=== PATIENT | female | born 1990 | race Two or more races ===

== ENCOUNTER 2019-02-24 18:48 | Emergency (ER) | payer MEDICAID ==
[2019-02-24] MEDS ORDERED: Morphine 4 MG/ML Syringe IVPUSH ONE (19:10)
[2019-02-24] MEDS ORDERED: Ondansetron 4 MG/2 ML SDV IVPUSH ONE (19:10)
[2019-02-24] MEDS ORDERED: Sodium Chloride 0.9% 10 ML Syringe FLUSH PRN (19:10)
[2019-02-24 19:12] VITALS: BP 143/119; PULSE 100
--- NOTE | 2019-02-24 19:14 | EDM.PDOC ---
ED HPI GENERAL MEDICAL PROBLEM - General Chief Complaint: Respiratory Problem Stated Complaint: TROUBLE BREATHING Time Seen by Provider: 02/24/19 19:06 Source of Information: Reports: Patient History Limitations: Reports: No Limitations - History of Present Illness INITIAL COMMENTS - FREE TEXT/NARRATIVE: Patient's unfortunate 28-year-old morbidly obese female who presents emergency Department today with complaint of left-sided chest pain. Patient reports that symptoms started yesterday with a sharp stabbing type pain that has worsened today. Patient reports the pain became so severe that she needed to leave work for him and caused her to vomit. Pain is worse with deep inspiration or palpation improves with rest does not alleviate. No fever no chills no cough no congestion also for shortness of breath no recent travel Left Abdomen Pain Score (Numeric/FACES): 7 - Related Data Allergies Allergy/AdvReac Type Severity Reaction Status Date / Time codeine Allergy Rash Verified 02/24/19 19:12 Home Meds: Home Meds . [No Known Home Meds] 02/24/19 [History] Past Medical History Genitourinary History: Reports: Renal Calculus, Other (See Below) Other Genitourinary History: stents placed [employer] History: Reports: Endocrine/Metabolic History: Reports: Diabetes, Type II - Past Surgical History HEENT Surgical History: Reports: Tonsillectomy GI Surgical History: Reports: Appendectomy Social & Family History - Family History Family Medical History: Noncontributory - Caffeine Use Caffeine Use: Reports: None ED ROS GENERAL - Review of Systems Review Of Systems: See Below Constitutional: Denies: Fever, Chills Respiratory: Reports: Shortness of Breath. Denies: Cough, Sputum Cardiovascular: Reports: Chest Pain GI/Abdominal: Reports: Abdominal Pain, Nausea, Vomiting ED EXAM, GENERAL - Physical Exam Exam: See Below Exam Limited By: No Limitations General Appearance: Alert, WD/WN, Moderate Distress, Obese Nose: Normal Inspection, Normal Mucosa, No Blood Throat/Mouth: Normal Inspection, Normal Lips, Normal Teeth, Normal Gums, Normal Oropharynx, Normal Voice, No Airway Compromise Head: Atraumatic, Normocephalic Respiratory/Chest: No Respiratory Distress, Lungs Clear, Normal Breath Sounds, No Accessory Muscle Use, Other (Tenderness to left sternal border intercostal space 4-5 which completely reproduces symptoms). No: Chest Non-Tender Cardiovascular: Normal Peripheral Pulses, Regular Rate, Rhythm, No Edema, No Gallop, No JVD, No Murmur, No Rub GI/Abdominal: Normal Bowel Sounds, Soft, Tender (Severe tenderness right upper quadrant and epigastric positive Araujo sign) Back Exam: Normal Inspection, Full Range of Motion, NT Extremities: Normal Inspection, Normal Range of Motion, Non-Tender, Normal Capillary Refill, No Pedal Edema Neurological: Alert Skin Exam: Warm, Dry EKG INTERPRETATION EKG Date: 02/24/19 Time: 19:40 Rhythm: NSR [place]: Normal P-Wave: Present QRS: Normal ST-T: Normal QT: Normal Course - Vital Signs Last Recorded V/S: Last Vital Signs Temp 97.0 F 02/24/19 19:08 Pulse 100 02/24/19 19:08 Resp 22 H 02/24/19 19:08 BP 143/119 H 02/24/19 19:08 Pulse Ox 100 02/24/19 19:08 - Orders/Labs/Meds Orders: Active Orders 24 hr Category Date Time Status EKG Documentation Completion [RC] ASDIRECTED Care 02/24/19 19:11 Active Chest 2V [CR] Stat Exams 02/24/19 19:10 Taken Sodium Chloride 0.9% [Saline Flush] Med 02/24/19 19:10 Active 10 ml FLUSH ASDIRECTED PRN Saline Lock Insert [OM.PC] Stat Oth 02/24/19 19:10 Ordered EKG 12 Lead [EK] Stat Ther 02/24/19 19:10 Ordered Medication Orders Sodium Chloride (Saline Flush) 10 ml FLUSH ASDIRECTED PRN PRN Reason: Keep Vein Open Last Admin: 02/24/19 19:25 Dose: 10 ml Labs: Laboratory Tests 02/24/19 02/24/19 02/24/19 Range/Units 19:20 19:20 19:20 WBC 14.13 H (3.98-10.04) K/mm3 RBC 4.94 (3.98-5.22) M/mm3 Hgb 11.2 D (11.2-15.7) gm/dl Hct 35.9 (34.1-44.9) % MCV 72.7 L (79.4-94.8) fl MCH 22.7 L (25.6-32.2) pg MCHC 31.2 L (32.2-35.5) g/dl RDW Std Deviation 44.0 (36.4-46.3) fL Plt Count 420 H (182-369) K/mm3 MPV 10.4 (9.4-12.3) fl Neut % (Auto) 66.6 (34.0-71.1) % Lymph % (Auto) 25.0 (19.3-51.7) % [place] % (Auto) 6.7 (4.7-12.5) % Eos % (Auto) 1.3 (0.7-5.8) Baso % (Auto) 0.2 (0.1-1.2) % Neut # (Auto) 9.42 H (1.56-6.13) K/mm3 Lymph # (Auto) 3.53 (1.18-3.74) K/mm3 [place] # (Auto) 0.94 H (0.24-0.36) K/mm3 Eos # (Auto) 0.18 (0.04-0.36) K/mm3 Baso # (Auto) 0.03 (0.01-0.08) K/mm3 Manual Slide Review Abnormal smear Sodium 136 (136-145) mEq/L Potassium 4.0 (3.5-5.1) mEq/L Chloride 100 (98-107) mEq/L Carbon Dioxide 23 (21-32) mEq/L Anion Gap 17.0 H (5-15) BUN 11 (7-18) mg/dL Creatinine 0.7 (0.55-1.02) mg/dL Est Cr Clr Drug Dosing 94.63 mL/min Estimated GFR (MDRD) > 60 (>60) mL/min BUN/Creatinine Ratio 15.7 (14-18) Glucose 115 H (74-106) mg/dL Calcium 8.8 (8.5-10.1) mg/dL Total Bilirubin 0.2 (0.2-1.0) mg/dL AST 14 L (15-37) U/L ALT 30 (14-59) U/L Alkaline Phosphatase 105 (46-116) U/L Troponin I < 0.017 (0.00-0.056) ng/mL Total Protein 7.8 (6.4-8.2) g/dl Albumin 3.2 L (3.4-5.0) g/dl Globulin 4.6 gm/dL Albumin/Globulin Ratio 0.7 L (1-2) Lipase 181 (73-393) U/L HCG, Qual Negative (NEGATIVE) Urine Color (Yellow) Urine Appearance (Clear) Urine pH (5.0-8.0) Ur Specific [place] (1.005-1.030) Urine Protein (Negative) Urine Glucose (UA) (Negative) Urine Ketones (Negative) Urine Occult Blood (Negative) Urine Nitrite (Negative) Urine Bilirubin (Negative) Urine Urobilinogen (0.2-1.0) Ur Leukocyte Esterase (Negative) Urine RBC (0-5) /hpf Urine WBC (0-5) /hpf Ur Squamous Epith Cells (0-5) /hpf Urine Bacteria (FEW) /hpf Urine Mucus (FEW) /hpf 02/24/19 Range/Units 20:30 WBC (3.98-10.04) K/mm3 RBC (3.98-5.22) M/mm3 Hgb (11.2-15.7) gm/dl Hct (34.1-44.9) % MCV (79.4-94.8) fl MCH (25.6-32.2) pg MCHC (32.2-35.5) g/dl RDW Std Deviation (36.4-46.3) fL Plt Count (182-369) K/mm3 MPV (9.4-12.3) fl Neut % (Auto) (34.0-71.1) % Lymph % (Auto) (19.3-51.7) % [place] % (Auto) (4.7-12.5) % Eos % (Auto) (0.7-5.8) Baso % (Auto) (0.1-1.2) % Neut # (Auto) (1.56-6.13) K/mm3 Lymph # (Auto) (1.18-3.74) K/mm3 [place] # (Auto) (0.24-0.36) K/mm3 Eos # (Auto) (0.04-0.36) K/mm3 Baso # (Auto) (0.01-0.08) K/mm3 Manual Slide Review Sodium (136-145) mEq/L Potassium (3.5-5.1) mEq/L Chloride (98-107) mEq/L Carbon Dioxide (21-32) mEq/L Anion Gap (5-15) BUN (7-18) mg/dL Creatinine (0.55-1.02) mg/dL Est Cr Clr Drug Dosing mL/min Estimated GFR (MDRD) (>60) mL/min BUN/Creatinine Ratio (14-18) Glucose (74-106) mg/dL Calcium (8.5-10.1) mg/dL Total Bilirubin (0.2-1.0) mg/dL AST (15-37) U/L ALT (14-59) U/L Alkaline Phosphatase (46-116) U/L Troponin I (0.00-0.056) ng/mL Total Protein (6.4-8.2) g/dl Albumin (3.4-5.0) g/dl Globulin gm/dL Albumin/Globulin Ratio (1-2) Lipase (73-393) U/L HCG, Qual (NEGATIVE) Urine Color Yellow (Yellow) Urine Appearance Clear (Clear) Urine pH 7.0 (5.0-8.0) Ur Specific [place] > or = 1.030 (1.005-1.030) Urine Protein Negative (Negative) Urine Glucose (UA) Negative (Negative) Urine Ketones Negative (Negative) Urine Occult Blood 1+ H (Negative) Urine Nitrite Negative (Negative) Urine Bilirubin Negative (Negative) Urine Urobilinogen 0.2 (0.2-1.0) Ur Leukocyte Esterase Negative (Negative) Urine RBC 5-10 H (0-5) /hpf Urine WBC 5-10 H (0-5) /hpf Ur Squamous Epith Cells 5-10 H (0-5) /hpf Urine Bacteria Few (FEW) /hpf Urine Mucus Moderate H (FEW) /hpf Meds: Medications Generic Name Dose Route Start Last Admin Trade Name Freq PRN Reason Stop Dose Admin Sodium Chloride 10 ml 02/24/19 19:10 02/24/19 19:25 Saline Flush FLUSH 10 ml ASDIRECTED PRN Administration Keep Vein Open Discontinued Medications Generic Name Dose Route Start Last Admin Trade Name Freq PRN Reason Stop Dose Admin Al Hydroxide/Mg Hydroxide 30 0 ml 02/24/19 20:50 02/24/19 20:56 ml/ Lidocaine HCl 15 ml PO 02/24/19 20:51 45 ml ONETIME ONE Administration Morphine Sulfate 4 mg 01/20/20 19:10 02/24/19 19:25 Morphine IVPUSH 02/24/19 19:11 4 mg ONETIME ONE Administration Ondansetron HCl 4 mg 02/24/19 19:10 02/24/19 19:24 Zofran IVPUSH 02/24/19 19:11 4 mg ONETIME ONE Administration - Re-Assessments/Exams Free Text/Narrative Re-Assessment/Exam: 02/24/19 20:45 Chest X-ray interpreted by me NAD Free Text/Narrative Re-Assessment/Exam: 02/24/19 20:49 Color sono "impression: #1 probable fatty infiltration within the liver. #2 no additional ultrasound abnormalities identified on the right upper quadrant abdominal ultrasound." Free Text/Narrative Re-Assessment/Exam: 02/24/19 21:07 GERD versus a calculus cholecystitis, we will treat for GERD and have patient follow up outpatient with PCP Departure - Departure Time of Disposition: 21:07 Disposition: Home, Self-Care 01 Clinical Impression: GERD (gastroesophageal reflux disease) Qualifiers: Esophagitis presence: without esophagitis Qualified Code(s): K21.9 - Gastro- esophageal reflux disease without esophagitis - Discharge Information Instructions: Gastroesophageal Reflux Disease, Adult Referrals: Bill Bailey PA-C [Primary Care Provider] - Forms: ED Department Discharge Additional Instructions: Home, rest, Prilosec OTC daily for one month, Tums as needed for pain, return as needed for worsening condition Sepsis Event Note - Focused Exam Vital Signs: Vital Signs Temp Pulse Resp BP Pulse Ox 02/24/19 19:08 97.0 F 100 22 H 143/119 H 100 Date Exam was Performed: 02/24/19 Time Exam was Performed: 21:07 - My Orders Last 24 Hours: My Active Orders 02/24/19 19:10 Chest 2V [CR] Stat Sodium Chloride 0.9% [Saline Flush] 10 ml FLUSH ASDIRECTED PRN Saline Lock Insert [OM.PC] Stat EKG 12 Lead [EK] Stat 02/24/19 19:11 EKG Documentation Completion [RC] ASDIRECTED - Assessment/Plan Last 24 Hours: My Active Orders 02/24/19 19:10 Chest 2V [CR] Stat Sodium Chloride 0.9% [Saline Flush] 10 ml FLUSH ASDIRECTED PRN Saline Lock Insert [OM.PC] Stat EKG 12 Lead [EK] Stat 02/24/19 19:11 EKG Documentation Completion [RC] ASDIRECTED
--- NOTE | 2019-02-24 20:44 | US ---
Limited abdominal ultrasound: Multiple real-time images of the upper right abdomen were obtained. Comparison: No prior abdominal imaging. Findings: Liver is slightly echogenic in relation to the right kidney. This most likely represents fatty infiltration. No focal abnormality is appreciated within the liver. Gallbladder contains no shadowing gallstones. No gallbladder wall thickening or biliary duct dilatation is seen. Right kidney shows no hydronephrosis or mass and has a length of 12.8 cm. Visualized portions of the pancreas shows no discrete abnormality. Inferior vena cava is patent. Portal vein shows normal hepatopedal flow. Impression: 1. Probable fatty infiltration within the liver. 2. No additional abnormality is identified on right upper quadrant abdominal ultrasound. Diagnostic code #2 Study was dictated in [place] Standard Time
[2019-02-24] MEDS ORDERED: Alum Hydrox/Mag Hydrox/Simeth 30 ML, Lidocaine 2% 15 ML PO ONE ×2 (20:50)
--- NOTE | 2019-02-25 07:23 | CR ---
Chest: Two views of the chest were obtained. Comparison: No prior chest imaging. Heart size and mediastinum are within normal limits. Lungs are clear with no acute parenchymal change. Bony structures appear within normal limits. Impression: 1. Nothing acute is appreciated on two-view chest x-ray. Diagnostic code #1 This report was dictated in [place] Standard Time
== END 2019-02-24 21:15 | disposition home or self-care (01) ==
LOC: JD.ED 18:48
DX: K21.9 Gastro-esophageal reflux disease without esophagitis (principal); E11.9 Type 2 diabetes mellitus without complications; Z88.5 Allergy status to narcotic agent; Z68.43 Body mass index [BMI] 50.0-59.9, adult
CPT/HCPCS: 36415; 71046; 76705; 80053; 81001; 83690; 84484; 84703; 85025; 93005; 96374; 96375; 99285; A9270; J2270; J2405; 93010; 99283

== ENCOUNTER 2021-04-10 06:45 | Emergency (ER) | payer SELFPAY ==
[2021-04-10 07:12] VITALS: BP 118/66; PULSE 71
[2021-04-10] MEDS ORDERED: Ketorolac 30 MG/ML SDV IM ONE (09:02)
== END 2021-04-10 09:50 | disposition home or self-care (01) ==
LOC: JD.ED 06:45
DX: S82.832A Other fracture of upper and lower end of left fibula, initial encounter for closed fracture (principal); S93.492A Sprain of other ligament of left ankle, initial encounter; E11.9 Type 2 diabetes mellitus without complications; Z88.5 Allergy status to narcotic agent; Z87.891 Personal history of nicotine dependence; W18.30XA Fall on same level, unspecified, initial encounter
CPT/HCPCS: 73610; 96372; 99283; J1885

== ENCOUNTER 2021-08-26 19:53 | Emergency (ER) | payer BC ==
[2021-08-26 20:15] VITALS: BP 126/85; PULSE 77
[2021-08-26] MEDS ORDERED: Ketorolac 60 MG/2 ML SDV IM ONE (20:29)
== END 2021-08-26 21:19 | disposition home or self-care (01) ==
LOC: JD.ED 19:53
DX: S93.492A Sprain of other ligament of left ankle, initial encounter (principal); E11.9 Type 2 diabetes mellitus without complications; E66.9 Obesity, unspecified; Z68.42 Body mass index [BMI] 45.0-49.9, adult; Z88.5 Allergy status to narcotic agent; Z86.16 Personal history of COVID-19; Z87.891 Personal history of nicotine dependence; X50.1XXA Overexertion from prolonged static or awkward postures, initial encounter; Y99.0 Civilian activity done for income or pay
CPT/HCPCS: 73610; 96372; 99283; J1885

== ENCOUNTER 2023-01-03 01:13 | Emergency (ER) | payer BC, MEDICAID ==
[2023-01-03] MEDS ORDERED: diphenhydrAMINE 50 MG/ML SDV IVPUSH ONE (02:23)
[2023-01-03] MEDS ORDERED: Prochlorperazine 10 MG in Sodium Chloride 0.9% 50 ML IV ONE (02:23)
[2023-01-03] MEDS ORDERED: Sodium Chloride 0.9% 1,000 ML IV ONE (02:23)
[2023-01-03 02:33] LABS: CORONAVIRUS COVID-19 NAA NEGATIVE (NEGATIVE); INFLUENZA A NAA NEGATIVE (NEGATIVE); RESPIRATORY SYNCYTIAL VIR NAA NEGATIVE (NEGATIVE)
[2023-01-03 02:33] LABS: BASOPHILS PERCENT AUTO 0.2 % (0.0-1.0); HEMATOCRIT 25.9 % (37.0-47.0); HEMOGLOBIN 7.9 gm/dl (12.0-16.0); IMMATURE GRAN ABSOLUTE AUTO 0.07 K/mm3 (0.00-0.05); IMMATURE GRAN PERCENT AUTO 0.4 % (0.0-0.4); LYMPHOCYTES ABSOLUTE AUTO 1.3 K/mm3 (1.0-4.8); LYMPHOCYTES PERCENT AUTO 6.8 % (24.0-44.0); MEAN CORPUSCULAR HGB CONC 30.5 g/dl (32.0-36.0); MEAN CORPUSCULAR VOLUME 62.4 fl (83.0-99.0); MEAN PLATELET VOLUME 10.1 fl (9.4-12.3); MONOCYTES ABSOLUTE AUTO 1.1 K/mm3 (0.0-0.8); MONOCYTES PERCENT AUTO 5.8 % (0.0-8.0); NEUTROPHILS ABSOLUTE AUTO 16.9 K/mm3 (1.8-7.7); NEUTROPHILS PERCENT AUTO 86.8 % (41.0-71.0); PLATELET COUNT,PLT 296 K/mm3 (150-400); RED BLOOD CELL COUNT 4.15 M/mm3 (4.10-5.30)
[2023-01-03 02:54] LABS: A/G RATIO 0.8 (1-2); ALBUMIN 2.9 g/dl (3.4-5.0); ANION GAP 16.8 (5-15); BILIRUBIN TOTAL 0.3 mg/dL (0.2-1.0); CALCIUM 8.3 mg/dL (8.5-10.1); CREATININE 0.5 mg/dL (0.55-1.02); EST CRCL DRUG DOSING (CG) 151.22 mL/min; POTASSIUM,K 3.8 mEq/L (3.5-5.1); PROTEIN TOTAL,TP 6.7 g/dl (6.4-8.2)
[2023-01-03 03:33] LABS: APPEARANCE,URINE CLEAR (Clear); BILIRUBIN,URINE NEGATIVE (Negative); COLOR,URINE YELLOW (Yellow); GLUCOSE,URINE NEGATIVE (Negative); KETONES,URINE 1+ (Negative); LEUKOCYTE ESTERASE,URINE 3+ (Negative); NITRITE,URINE NEGATIVE (Negative); OCCULT BLOOD,URINE NEGATIVE (Negative); PROTEIN,URINE NEGATIVE (Negative); UROBILINOGEN,URINE 0.2 (0.2-1.0)
[2023-01-03 03:44] LABS: SLIDE REVIEW ABNORMAL SMEAR
[2023-01-03 03:52] LABS: RBC,URINE 0-5 /hpf (0-5); WBC CLUMPS,URINE FEW /hpf (NOT SEEN); WBC,URINE 30-40 /hpf (0-5)
[2023-01-03 03:53] LABS: BACTERIA,URINE MODERATE /hpf (FEW); MUCUS,URINE NOT SEEN /hpf (FEW)
[2023-01-03] MEDS ORDERED: Cephalexin 500 MG Cap PO ONE (06:04)
[2023-01-03 06:26] VITALS: BP 109/60; PULSE 90
== END 2023-01-03 06:25 | disposition home or self-care (01) ==
LOC: JD.ED 01:13
DX: O02.1 Missed abortion (principal); N39.0 Urinary tract infection, site not specified; E11.9 Type 2 diabetes mellitus without complications; E66.9 Obesity, unspecified; Z87.891 Personal history of nicotine dependence; Z90.49 Acquired absence of other specified parts of digestive tract; Z86.16 Personal history of COVID-19; Z20.822 Contact with and (suspected) exposure to COVID-19; Z68.30 Body mass index [BMI] 30.0-30.9, adult; Z3A.14 14 weeks gestation of pregnancy; Z88.5 Allergy status to narcotic agent
CPT/HCPCS: 0241U; 36415; 76815; 80053; 81001; 85025; 86850; 86900; 86901; 87086; 87088; 87186; 96365; 96375; 99284; A9270; J0780; J1200; J3490; J7030